=== PATIENT | female | born 1995 | race Caucasian/White ===

== ENCOUNTER 2019-03-20 09:47 | Outpatient (CLI) | payer OTHER ==
--- NOTE | 2019-03-20 15:12 | XRAY Report ---
Reason: thumb pain, R Procedure Date: 03/20/2019 Accession Number: [id number] / [id number] Procedure: XRN - Finger(s) RT CPT Code: Final Report FULL RESULT: EXAM: RIGHT FIRST DIGIT RADIOGRAPHY EXAM DATE: 03/20/2019 10:11 AM. CLINICAL HISTORY: Thumb pain, right. COMPARISON: None. TECHNIQUE: 3 views. FINDINGS: Bones: Normal. No fracture or bone lesion. Joints: Normal. No subluxations. Soft Tissues: No soft tissue gas or radiopaque foreign body is detected. IMPRESSION: No acute osseous injury. RADIA
== END 2019-03-20 09:48 | disposition home or self-care (01) ==
LOC: DI.N 09:47
PROVIDERS: ATTEND Physician Assistant Medical
DX: M79.644 Pain in right finger(s) (principal)
CPT/HCPCS: 73140

== ENCOUNTER 2020-04-12 07:00 | Outpatient (CLI) | payer OTHER ==
--- NOTE | 2020-04-12 08:54 | XRAY Report ---
PROCEDURE: Chest 2 View X-Ray INDICATIONS: Persistent cough TECHNIQUE: 2 view(s) of the chest. COMPARISON: None. FINDINGS: Surgical changes and devices: None. Lungs and pleura: No pleural effusions or pneumothorax. Lungs are clear. Mediastinum: Mediastinal contours are normal. Heart size is normal. Bones and chest wall: No suspicious bony abnormalities. Soft tissues appear unremarkable. IMPRESSION: No acute cardiopulmonary process demonstrated radiographically. Reviewed by: Raj Kelly MD on 04/12/2020 8:53 AM [facility] Approved by: Raj Kelly MD on 04/12/2020 8:53 AM [facility] Station ID: [id number]
== END 2020-04-12 23:59 | disposition home or self-care (01) ==
LOC: DI.N 07:00
PROVIDERS: ATTEND Family Medicine
DX: R05 Cough (principal)

== ENCOUNTER 2020-04-12 08:15 | Outpatient (CLI) | payer OTHER | END 2020-04-12 23:59 | disposition home or self-care (01) | LOC: LAB.R 08:15 | PROVIDERS: ATTEND Family Medicine | DX: R05 Cough (principal); Z20.828 Contact with and (suspected) exposure to other viral communicable diseases | CPT/HCPCS: 87275; 87276 ==

== ENCOUNTER 2020-11-16 16:11 | Outpatient (CLI) | payer OTHER ==
--- NOTE | 2020-11-16 16:56 | XRAY Report ---
PROCEDURE: Foot 3 View RT INDICATIONS: R FOOT PX TECHNIQUE: 3 views of the foot were acquired. COMPARISON: None. FINDINGS: Bones: No fractures or dislocations. No suspicious bony lesions. Soft tissues: No tibiotalar joint effusion. Achilles tendon appears normal. IMPRESSION: No acute osseous abnormality. Reviewed by: Filiberto Chacon MD on 11/16/2020 4:55 PM PDT Approved by: Filiberto Chacon MD on 11/16/2020 4:55 PM PDT Station ID: [id number]
== END 2020-11-16 23:59 | disposition home or self-care (01) ==
LOC: DI.N 16:11
PROVIDERS: ATTEND Family Medicine
DX: M79.671 Pain in right foot (principal)

== ENCOUNTER 2024-01-09 08:06 | Outpatient (CLI) | payer BC ==
[~2024-01-09 08:06] MED LIST: GADOTERATE MEGLUMINE 7.5 MMOL/15 ML VIAL ONE
[2024-01-09] MEDS: GADOTERATE MEGLUMINE 7.5 MMOL/15 ML VIAL IVP ONE (09:11)
--- NOTE | 2024-01-09 12:44 | MRI Report ---
PROCEDURE: Pelvis W/WO INDICATIONS: PELVIC PAIN CONTRAST: IV contrast TECHNIQUE: Coronal ultra fast SE, sagittal T2 FSE, axial T1 FSE, axial and coronal nonbreath-hold T2 FSE. Axial dynamic ultra fast GE during administration of contrast. Post-contrast axial and coronal ultra fast GE / 2-D spoiled GE with fat saturation from the iliac crests to the symphysis. Optional diffusion weighted imaging and ADC may be performed. COMPARISON: No comparisons. FINDINGS: Image quality: Diagnostic Lower abdomen: Small amount pelvic free fluid may be physiologic in this age group. There is no bowel obstruction or lower abdomen Bladder: Unremarkable Reproductive organs: Endometrium measuring 1.1 cm, within normal limits for age. No pathologic juncti onal zone thickening. In the anterior lower uterine segment, there is a small isthmocele measuring 7 mm (07/29). Cervix appe ars unremarkable. Left corpus luteum cyst. No significant ovarian abnormality identified otherwise. The uterus is retroverted. On precontrast T1-weighted images, there are no findings suggestive of advanced pelvic deep endometri osis. Ill-defined low T2 signal is seen between the underside of the sigmoid colon and ventral surface of t he uterus (example 07/31) Rectum: Unremarkable Vessels and lymph nodes: No aneurysmal vessel. No pathologic lymph nodes by size criteria Pelvic wall: Unremarkable Bones: Unremarkable IMPRESSION: Suspect small isthmocele in the anterior lower uterine segment. Correlate with surgical history. Retroverted uterus. Possible small areas of scar is seen between the ventral surface of the uterus an d the underside of the sigmoid colon, nonspecific, possibly related to prior procedure versus inflamm ation. Small amount pelvic free fluid is probably physiologic in this age group. Other findings above Reviewed by: Anders Crowder MD on 01/09/2024 12:43 PM PDT Approved by: Anders Crowder MD on 01/09/2024 12:43 PM PDT Station ID: [id number]
== END 2024-01-09 08:07 | disposition home or self-care (01) ==
LOC: DI 08:06
PROVIDERS: ATTEND Nurse Practitioner
DX: R10.2 Pelvic and perineal pain (principal); N85.4 Malposition of uterus